=== PATIENT | male | born 1950 | race Caucasian/White ===

== ENCOUNTER 2023-04-29 17:20 | Emergency (ER) | payer OTHER ==
[2023-04-29] MEDS ORDERED: Boostrix 0.5 ML (Tdap) VIAL (>/=7 yrs of age) ONE (17:55)
[2023-04-29] MEDS ORDERED: Lidocaine 2% PF 5 ML VIAL ONE (17:56)
[2023-04-29] MEDS ORDERED: Sulfameth/Trimethoprim DS 800-160mg TAB ONE (18:52)
== END 2023-04-29 18:57 | disposition home or self-care (01) ==
LOC: BURERS 17:20
DX: S62.620B Displaced fracture of middle phalanx of right index finger, initial encounter for open fracture (principal); I10 Essential (primary) hypertension; Z23 Encounter for immunization; W23.1XXA Caught, crushed, jammed, or pinched between stationary objects, initial encounter
CPT/HCPCS: 12002; 90471; 90715; J2001